=== PATIENT | female | born 1970 | race Caucasian/White ===

== ENCOUNTER 2022-05-31 16:15 | Emergency (ER) | payer MEDICAID, OTHER ==
[~2022-05-31] VITALS: Ht 152.4 cm; Wt 63.0 kg
[~2022-05-31 16:15] MED LIST: TOPUD MT
[2022-06-01] MEDS ORDERED: HYDROCODONE/ACETAMINOPHEN 5/325MG TABLET PO ONE
[2022-06-01 00:31] LABS: BASOPHILS % 0.6 % (0.0-2.0); EOSINOPHILS % 3.4 % (0.0-5.0); HEMATOCRIT. 40.5 % (36.0-48.0); HEMOGLOBIN. 13.6 g/dL (12.0-16.0); LYMPHOCYTES % 45.5 % (20.0-50.0); MEAN CORPUSCULAR HEMOGLOBIN 30.7 pg (28.0-32.0); MEAN CORPUSCULAR VOLUME 91.8 fL (81.0-99.0); MEAN PLATELET VOLUME 8.6 fl (7.4-10.4); MONOCYTES % 7.1 % (2.0-8.0); NEUTROPHILS % 43.4 % (40.0-76.0); PLATELET 279 x1000/uL (130-400); RED BLOOD CELL COUNT 4.42 mill/uL (4.2-5.4); RED CELL DISTRIBUTION WIDTH 13.6 % (11.6-14.6)
[2022-06-01 00:46] LABS: CHLORIDE 102 mEq/L (98-107)
[2022-06-01 04:00] VITALS: BP 138/66
== END 2022-06-01 04:20 | disposition home or self-care (01) ==
LOC: ER 16:15
DX: R07.89 Other chest pain (principal); I25.10 Atherosclerotic heart disease of native coronary artery without angina pectoris; E11.9 Type 2 diabetes mellitus without complications; I10 Essential (primary) hypertension; Z98.890 Other specified postprocedural states; Z95.0 Presence of cardiac pacemaker; Z88.0 Allergy status to penicillin
CPT/HCPCS: 36415; 71250; 80053; 84484; 85025; 93005; 99285

== ENCOUNTER 2024-06-02 10:51 | Emergency (ER) | payer OTHER ==
[~2024-06-02] VITALS: Ht 160 cm; Wt 59.0 kg
[2024-06-02 10:57] VITALS: O2SAT 99
[2024-06-02] MEDS: BACITRACIN 14GM TUBE TOP ONE (11:35)
[2024-06-02] MEDS: HYDROCODONE/ACETAMINOPHEN 5/325MG TABLET PO ONE (11:57)
[2024-06-02] MEDS ORDERED: TOPUD MT (11:59)
[2024-06-02] MEDS ORDERED: BO1 TP (11:59)
[2024-06-02] MEDS: TETANUS, DIPHTHERIA, PERTUSSIS VAC/PF 0.5ML (>10YR OLD) IM ONE (12:02)
[2024-06-02 12:18] VITALS: BP 144/77; PULSE 77; RESP 18; TEMP 97.7
== END 2024-06-02 12:30 | disposition home or self-care (01) ==
LOC: ER 10:51
DX: T24.202A Burn of second degree of unspecified site of left lower limb, except ankle and foot, initial encounter (principal); I10 Essential (primary) hypertension; E11.9 Type 2 diabetes mellitus without complications; I49.9 Cardiac arrhythmia, unspecified; Z88.0 Allergy status to penicillin; Z88.8 Allergy status to other drugs, medicaments and biological substances; Z98.890 Other specified postprocedural states; X58.XXXA Exposure to other specified factors, initial encounter; Y93.89 Activity, other specified; Y92.89 Other specified places as the place of occurrence of the external cause; Y99.8 Other external cause status
CPT/HCPCS: 90715; 16020; 90471; 99283; Z7610 ×2